=== PATIENT | female | born 2000 | race Caucasian/White ===

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

== ENCOUNTER 2019-04-15 23:55 | Emergency (ER) | payer BC ==
[~2019-04-15] VITALS: Ht 157.5 cm; Wt 79.4 kg
[~2019-04-15 23:55] MED LIST: IBUP800T19 PO; SULF1TAB24 PO
--- NOTE | 2019-04-16 00:24 | ED.ADGEN ---
Past History Past Medical History: No Pertinent History, Ovarian Cyst Past Surgical History: No Surgical History Smoking: Non-smoker Alcohol Use: Occasionally Drug Use: None Adult General Chief Complaint Chief Complaint ".. I ve been sick the last 2 and 1/2 days... I thought it was bad chicken.. and [place].. he got sick.. and he got better... but I am still nauseated... and having at least 10 diarrheas a day... and now I have some cramping.. down here on lt. .. but I do have ovarian cysts.. and period is about to start... I get cramps with my periods. .. .. I went to [facility] yesterday... and all they did was check my urine....I have been eating.. chicken and crackers today... HPI HPI Patient is a 18 year old female who presents with above hx and complaints of nausea, vomiting, and multiple diarrhea stools. Stools are watery. Patient has had an excessive gas. Patient did have some questionable food that made her sick 2 days ago. Patient denies any travel. Patient denies any history immunosuppression. Patient has had ovarian cyst and dysmenorrhea in the past. H as had urinary tract infections in the past. Patient denies any vaginal discharge. Patient does have some left lower abdomen cramping. Patient has been taking [id number] meds of Loperamide and Famotidine. Was seen in [facility] clinic yesterday. No history of trauma. Denies drug use. No family history of colitis or inflammatory bowel disorders Review of Systems Review of Systems Constitutional: Denies fever or chills [] Eyes: Denies change in visual acuity, redness, or eye pain [] HENT: Denies nasal congestion or sore throat [] Respiratory: Denies cough or shortness of breath [] Cardiovascular: No additional information not addressed in HPI [] GI: Plaints of left flank and lower quadrant abdominal pain, nausea, vomiting, diarrhea []denies bloody stools. : Denies dysuria or hematuria [] Musculoskeletal: Denies back pain or joint pain [] Integument: Denies rash or skin lesions [] Neurologic: Denies headache, focal weakness or sensory changes [] Endocrine: Denies polyuria or polydipsia [] All other systems were reviewed and found to be within normal limits, except as documented in this note. Family History Family History Noncontributory Current Medications Current Medications Current Medications Medications (Trade) Dose Ordered Sig/Scotty Start Time Stop Time Status Last Admin Dose Admin Famotidine (Pepcid Vial) 20 mg 1X ONCE 04/16/19 00:45 04/16/19 01:09 DC 04/16/19 01:01 20 MG Ketorolac Tromethamine (Toradol 30mg Vial) 30 mg 1X ONCE 04/16/19 00:45 04/16/19 01:09 DC 04/16/19 00:45 30 MG Ketorolac Tromethamine (Toradol Im) 60 mg STK-MED ONCE 04/16/19 00:43 04/16/19 00:44 DC Lactated Ringer's 1,000 ml @ 1,000 mls/hr Q1H 04/16/19 00:35 04/16/19 01:34 DC 04/16/19 01:00 1,000 MLS/HR Ondansetron HCl (Zofran) 8 mg 1X ONCE 04/16/19 00:45 04/16/19 01:09 DC 04/16/19 01:01 8 MG Allergies Allergies Allergies Coded Allergies Type Severity Reaction Last Updated Verified No Known Drug Allergies 11/17/18 No Physical Exam Physical Exam Constitutional: , moderately acute distress, non-toxic appearance. [] HENT: Normocephalic, atraumatic, bilateral external ears normal, oropharynx moist, no oral exudates, nose normal. [] Eyes: PERRLA, EOMI, conjunctiva normal, no discharge. [] Neck: Normal range of motion, no tenderness, supple, no stridor. [] Cardiovascular:Heart rate regular rhythm, no murmur [] Lungs & Thorax: Bilateral breath sounds equal at apex auscultation [] Abdomen: Bowel sounds hyperactive, soft, lower quadrant tenderness, no masses, no pulsatile masses. Mild generalized discomfort. Declines rectal or pelvic exams this time. Skin: Warm, dry, no erythema, no rash. [] Back: No tenderness, no CVA tenderness. [] Extremities: No tenderness, no cyanosis, no clubbing, ROM intact, no edema. [] No psoas sign. Neurologic: Alert and oriented X 3, normal motor function, normal sensory function, no focal deficits noted. [] Psychologic: Affect anxious, judgement normal, mood normal. [] Current Patient Data Vital Signs Vital Signs Date Time Temp Pulse Resp B/P (MAP) Pulse Ox O2 Delivery O2 Flow Rate FiO2 04/16/19 02:00 100 18 100/68 (79) 100 Room Air 04/16/19 00:12 98.1 Lab Results Laboratory Tests Test 04/16/19 00:13 04/16/19 00:30 04/16/19 01:15 POC Urine HCG, Qualitative hcg negative (Negative) Urine Collection Type Unknown Urine Color Yellow Urine Clarity Clear Urine pH 6.0 Urine Specific [place] >=1.030 Urine Protein Neg (NEG-TRACE) Urine Glucose (UA) Neg mg/dL (NEG) Urine Ketones (Stick) Neg mg/dL (NEG) Urine Blood Neg (NEG) Urine Nitrite Neg (NEG) Urine Bilirubin Neg (NEG) Urine Urobilinogen Dipstick 0.2 mg/dL (0.2 mg/dL) Urine Leukocyte Esterase Neg (NEG) Urine RBC 0 /HPF (0-2) Urine WBC 0 /HPF (0-4) Urine Squamous Epithelial Cells Few /LPF Urine Bacteria Few /HPF (0-FEW) Urine Mucus Slight /LPF Urine Opiates Screen Neg (NEG) Urine Methadone Screen Neg (NEG) Urine Barbiturates Neg (NEG) Urine Phencyclidine Screen Neg (NEG) Urine Amphetamine/Methamphetamine Neg (NEG) Urine Benzodiazepines Screen Neg (NEG) Urine Cocaine Screen Neg (NEG) Urine Cannabinoids Screen Neg (NEG) Urine Ethyl Alcohol Neg (NEG) White Blood Count 10.5 x10^3/uL (4.0-11.0) Red Blood Count 4.82 x10^6/uL (3.50-5.40) Hemoglobin 14.3 g/dL (12.0-15.5) Hematocrit 42.1 % (36.0-47.0) Mean Corpuscular Volume 87 fL (79-100) Mean Corpuscular Hemoglobin 30 pg (25-35) Mean Corpuscular Hemoglobin Concent 34 g/dL (31-37) Red Cell Distribution Width 12.7 % (11.5-14.5) Platelet Count 216 x10^3/uL (140-400) Neutrophils (%) (Auto) 52 % (31-73) Lymphocytes (%) (Auto) 37 % (24-48) Monocytes (%) (Auto) 6 % (0-9) Eosinophils (%) (Auto) 4 % (0-3) H Basophils (%) (Auto) 1 % (0-3) Neutrophils # (Auto) 5.5 x10^3uL (1.8-7.7) Lymphocytes # (Auto) 3.9 x10^3/uL (1.0-4.8) Monocytes # (Auto) 0.6 x10^3/uL (0.0-1.1) Eosinophils # (Auto) 0.5 x10^3/uL (0.0-0.7) Basophils # (Auto) 0.1 x10^3/uL (0.0-0.2) Sodium Level 141 mmol/L (136-145) Potassium Level 3.7 mmol/L (3.5-5.1) Chloride Level 105 mmol/L (98-107) Carbon Dioxide Level 27 mmol/L (21-32) Anion Gap 9 (6-14) Blood Urea Nitrogen 12 mg/dL (7-20) Creatinine 0.9 mg/dL (0.6-1.0) Estimated GFR (Cockcroft-Gault) 80.7 Glucose Level 86 mg/dL (70-99) Calcium Level 9.0 mg/dL (8.5-10.1) Total Bilirubin 0.4 mg/dL (0.2-1.0) Direct Bilirubin 0.1 mg/dL (0.0-0.2) Aspartate Amino Transferase (AST) 14 U/L (15-37) L Alanine Aminotransferase (ALT) 22 U/L (14-59) Alkaline Phosphatase 74 U/L (46-116) Total Protein 7.1 g/dL (6.4-8.2) Albumin 3.8 g/dL (3.4-5.0) Amylase Level 26 U/L (25-115) Lipase 84 U/L (73-393) EKG EKG [] Radiology/Procedures Radiology/Procedures I interpretation of acute abdomen film shows no acute cardiopulmonary findings. No free air under the diaphragm. Nonspecific bowel gas pattern. Nonobstructive.[] Course & Med Decision Making Course & Med Decision Making Pertinent Labs and Imaging studies reviewed. (See chart for details) Patient reports marked improvement in symptoms requesting discharge. She stay on a clear fluid diet for the next 2 days. Take Tylenol and ibuprofen for discomfort. Take Zantac 150 mg twice a day. Take Zofran 8 as needed for nausea and vomiting up to 4 times a day. Return if any concerns. Follow-up primary care. [] Final Impression Final Impression 1. Gastroenteritis[] 2. Abdomen pain Dragon Disclaimer Dragon Disclaimer This electronic medical record was generated, in whole or in part, using a voice recognition dictation system. Discharge Summary Visit Information Final Diagnosis Problems Medical Problems: (1) Diarrhea Status: Acute (2) Nausea and vomiting in adult patient Status: Acute Brief Hospital Course Allergies Allergies Coded Allergies Type Severity Reaction Last Updated Verified No Known Drug Allergies 11/17/18 No Vital Signs Vital Signs Date Time Temp Pulse Resp B/P (MAP) Pulse Ox O2 Delivery O2 Flow Rate FiO2 04/16/19 02:00 100 18 100/68 (79) 100 Room Air 04/16/19 00:12 98.1 Lab Results Laboratory Tests Test 04/16/19 00:13 04/16/19 00:30 04/16/19 01:15 Bedside Urine HCG, Qualitative hcg negative (Negative) Urine Collection Type Unknown Urine Color Yellow Urine Clarity Clear Urine pH 6.0 Urine Specific [place] >=1.030 Urine Protein Neg (NEG-TRACE) Urine Glucose (UA) Neg mg/dL (NEG) Urine Ketones (Stick) Neg mg/dL (NEG) Urine Blood Neg (NEG) Urine Nitrite Neg (NEG) Urine Bilirubin Neg (NEG) Urine Urobilinogen Dipstick 0.2 mg/dL (0.2 mg/dL) Urine Leukocyte Esterase Neg (NEG) Urine RBC 0 /HPF (0-2) Urine WBC 0 /HPF (0-4) Urine Squamous Epithelial Cells Few /LPF Urine Bacteria Few /HPF (0-FEW) Urine Mucus Slight /LPF Urine Opiates Screen Neg (NEG) Urine Methadone Screen Neg (NEG) Urine Barbiturates Neg (NEG) Urine Phencyclidine Screen Neg (NEG) Urine Amphetamine/Methamphetamine Neg (NEG) Urine Benzodiazepines Screen Neg (NEG) Urine Cocaine Screen Neg (NEG) Urine Cannabinoids Screen Neg (NEG) Urine Ethyl Alcohol Neg (NEG) White Blood Count 10.5 x10^3/uL (4.0-11.0) Red Blood Count 4.82 x10^6/uL (3.50-5.40) Hemoglobin 14.3 g/dL (12.0-15.5) Hematocrit 42.1 % (36.0-47.0) Mean Corpuscular Volume 87 fL (79-100) Mean Corpuscular Hemoglobin 30 pg (25-35) Mean Corpuscular Hemoglobin Concent 34 g/dL (31-37) Red Cell Distribution Width 12.7 % (11.5-14.5) Platelet Count 216 x10^3/uL (140-400) Neutrophils (%) (Auto) 52 % (31-73) Lymphocytes (%) (Auto) 37 % (24-48) Monocytes (%) (Auto) 6 % (0-9) Eosinophils (%) (Auto) 4 % (0-3) Basophils (%) (Auto) 1 % (0-3) Neutrophils # (Auto) 5.5 x10^3uL (1.8-7.7) Lymphocytes # (Auto) 3.9 x10^3/uL (1.0-4.8) Monocytes # (Auto) 0.6 x10^3/uL (0.0-1.1) Eosinophils # (Auto) 0.5 x10^3/uL (0.0-0.7) Basophils # (Auto) 0.1 x10^3/uL (0.0-0.2) Sodium Level 141 mmol/L (136-145) Potassium Level 3.7 mmol/L (3.5-5.1) Chloride Level 105 mmol/L (98-107) Carbon Dioxide Level 27 mmol/L (21-32) Anion Gap 9 (6-14) Blood Urea Nitrogen 12 mg/dL (7-20) Creatinine 0.9 mg/dL (0.6-1.0) Estimated GFR (Cockcroft-Gault) 80.7 Glucose Level 86 mg/dL (70-99) Calcium Level 9.0 mg/dL (8.5-10.1) Total Bilirubin 0.4 mg/dL (0.2-1.0) Direct Bilirubin 0.1 mg/dL (0.0-0.2) Aspartate Amino Transf (AST/SGOT) 14 U/L (15-37) Alanine Aminotransferase (ALT/SGPT) 22 U/L (14-59) Alkaline Phosphatase 74 U/L (46-116) Total Protein 7.1 g/dL (6.4-8.2) Albumin 3.8 g/dL (3.4-5.0) Amylase Level 26 U/L (25-115) Lipase 84 U/L (73-393) Brief Hospital Course Ms. Weems is a 18 old female who presented with hx of gastroenteritis. Discharge Information Condition at Discharge: Improved, Stable Disposition/Orders: D/C to Home Dischare Medications Current Medications Lactated Ringer's 1,000 ml @ 1,000 mls/hr Q1H IV Last administered on 04/16/19at 01:00; Admin Dose 1,000 MLS/HR; Start 04/16/19 at 00:35; Stop 04/16/19 at 01:34; Status DC Ondansetron HCl (Zofran) 8 mg 1X ONCE IV Last administered on 04/16/19at 01:01; Admin Dose 8 MG; Start 04/16/19 at 00:45; Stop 04/16/19 at 01:09; Status DC Famotidine (Pepcid Vial) 20 mg 1X ONCE IVP Last administered on 04/16/19at 01:01; Admin Dose 20 MG; Start 04/16/19 at 00:45; Stop 04/16/19 at 01:09; Status DC Ketorolac Tromethamine (Toradol 30mg Vial) 30 mg 1X ONCE IV Last administered on 04/16/19at 00:45; Admin Dose 30 MG; Start 04/16/19 at 00:45; Stop 04/16/19 at 01:09; Status DC Ketorolac Tromethamine (Toradol Im) 60 mg STK-MED ONCE IM ; Start 04/16/19 at 00:43; Stop 04/16/19 at 00:44; Status DC Active Scripts Active Zantac (Ranitidine Hcl) 150 Mg Tablet 150 Mg PO BID Zofran (Ondansetron Hcl) 8 Mg Tablet 8 Mg PO QIDPRN Ibuprofen 800 Mg Tablet 800 Mg PO TID 7 Days Bactrim Ds Tablet (Sulfamethoxazole/Trimethoprim) 1 Each Tablet 1 Tab PO BID Alejandro Disclaimer This chart was dictated in whole or in part using Voice Recognition software in a busy, high-work load, and often noisy Emergency Department environment. It may contain unintended and wholly unrecognized errors or omissions. COLTEN ALVAREZ MD Apr 16, 2019 00:24
[2019-04-16] MEDS ORDERED: IV RINGERS SOLUTION,LACTATED 1,000 ML IV SCH (00:35)
[2019-04-16] MEDS ORDERED: KETOROLAC 60 MG/2 ML VIAL. IM ONE (00:43)
[2019-04-16] MEDS ORDERED: FAMOTIDINE 20 MG/2 ML VIAL IVP ONE (00:45)
[2019-04-16] MEDS ORDERED: ONDANSETRON PF 4 MG/2 ML VIAL. IV ONE (00:45)
[2019-04-16] MEDS ORDERED: KETOROLAC 30 MG/ML VIAL. IV ONE (00:45)
[2019-04-16 01:01] LABS: BACTERIA,URINE FEW /HPF (0-FEW); BILIRUBIN,URINE NEG (NEG); CLARITY,URINE CLEAR; COLOR,URINE YELLOW; GLUCOSE,URINE NEG (NEG); NITRITE,URINE NEG (NEG); RBC,URINE 0 /HPF (0-2); SQUAMOUS EPITHELIAL CELL,UR FEW /LPF; UROBILINOGEN,URINE 0.2 mg/dL (0.2 mg/dL); WBC,URINE 0 /HPF (0-4)
[2019-04-16 01:06] LABS: BARBITURATES NEG (NEG); BENZODIAZEPINES NEG (NEG); CANNABINOIDS NEG (NEG); COCAINE NEG (NEG); METHADONE NEG (NEG); OPIATES NEG (NEG); PHENCYCLIDINE NEG (NEG)
[2019-04-16 01:17] LABS: AMPHETAMINE/METHAMPHETAMINE NEG (NEG)
[2019-04-16 01:25] LABS: BASO # 0.1 x10^3/uL (0.0-0.2); BASO % 1 % (0-3); EOS # 0.5 x10^3/uL (0.0-0.7); EOS % 4 % (0-3); HEMATOCRIT 42.1 % (36.0-47.0); HEMOGLOBIN 14.3 g/dL (12.0-15.5); LYMPH # 3.9 x10^3/uL (1.0-4.8); LYMPH % 37 % (24-48); MEAN CORPUSCULAR HEMOGLOBIN 30 pg (25-35); MEAN CORPUSCULAR HGB CONC 34 g/dL (31-37); MEAN CORPUSCULAR VOLUME 87 fL (79-100); MONO # 0.6 x10^3/uL (0.0-1.1); MONO % 6 % (0-9); NEUT # 5.5 x10^3uL (1.8-7.7); NEUT % 52 % (31-73); PLATELET COUNT 216 x10^3/uL (140-400); RED BLOOD COUNT 4.82 x10^6/uL (3.50-5.40); RED CELL DISTRIBUTION WIDTH 12.7 % (11.5-14.5); WHITE BLOOD COUNT 10.5 x10^3/uL (4.0-11.0)
[2019-04-16 01:38] LABS: ALBUMIN 3.8 g/dL (3.4-5.0); CREATININE 0.9 mg/dL (0.6-1.0); DIRECT BILIRUBIN 0.1 mg/dL (0.0-0.2); GFR 80.7; POTASSIUM 3.7 mmol/L (3.5-5.1); TOTAL BILIRUBIN 0.4 mg/dL (0.2-1.0); TOTAL PROTEIN 7.1 g/dL (6.4-8.2)
[2019-04-16 02:00] VITALS: BP 100/68
[2019-04-16] MEDS ORDERED: ONDA8TAB9 PO (02:00)
[2019-04-16] MEDS ORDERED: RANI-376 PO (02:00)
--- NOTE | 2019-04-16 07:58 | RAD ---
EXAM: Two view abdomen with one view chest HISTORY: Abdominal pain. COMPARISON: None. FINDINGS: A frontal view of the chest and supine/upright views of the abdomen are obtained. There are no confluent infiltrates. There is no pneumothorax or pleural effusion. The heart is not enlarged. There is no pneumoperitoneum. There are no distended small bowel loops or significant air-fluid levels. There is gas distally. IMPRESSION: 1. No confluent infiltrates. 2. No evidence of obstruction. Electronically signed by: Alberto Isaacs MD (04/16/2019 7:55 AM) [facility]
== END 2019-04-16 02:05 | disposition home or self-care (01) ==
LOC: ER 23:55
DX: K52.9 Noninfective gastroenteritis and colitis, unspecified (principal)
CPT/HCPCS: 36415; 74022; 80048; 80076; 80307; 81001; 81025; 82150; 83690; 85025; 96361; 96374; 96375; 99285; J1885; J2405; J3490; J7120